=== PATIENT | female | born 1980 | race Caucasian/White ===

== ENCOUNTER 2018-08-09 10:43 | Outpatient (CLI) | payer OTHER ==
--- NOTE | 2018-08-09 12:21 | ULT ---
ULTRASOUND ABDOMEN: Date: 08/09/18 HISTORY: Abdominal pain. FINDINGS: The liver demonstrates homogeneous echotexture without focal mass or intrahepatic ductal dilatation. No gallstones, gallbladder wall thickening, or pericholecystic fluid seen. There is a small amount of sludge in the gallbladder. The common duct measures 6.0 mm in diameter. The spleen measures 13.4 cm in length. The pancreas, kidneys, and visualized portions of the aorta and IVC are unremarkable. No f ree fluid is seen. IMPRESSION: 1. Borderline splenomegaly. 2. Small amount of gallbladder sludge. POS: OFF
== END 2018-08-09 10:44 | disposition home or self-care (01) ==
LOC: SCSULT 10:43
PROVIDERS: ATTEND Family Medicine
DX: R10.84 Generalized abdominal pain (principal); R16.1 Splenomegaly, not elsewhere classified; K82.9 Disease of gallbladder, unspecified
CPT/HCPCS: 76700

== ENCOUNTER 2018-08-16 08:42 | Outpatient (CLI) | payer OTHER ==
--- NOTE | 2018-08-16 11:18 | CT ---
CT ABDOMEN AND PELVIS WITHOUT IV CONTRAST: HISTORY: Abdominal pain. Splenomegaly. TECHNIQUE: Absence of IV contrast reduces the sensitivity of the exam for evaluation or solid organs. Oral cont rast was administered. FINDINGS: The lung bases are clear. No free air or free fluid is seen in the abdomen or pelvis. There is a 7 mm lymph node in the aortocaval space. A circumaortic left renal vein is present. No calcified gall stones are seen. The spleen measures 13 cm in length. No calculi are seen in the kidneys, ureters, or urinary bladder . No hydroureteronephrosis is noted on either side. The patient is post hysterectomy. The small bowel loops are not abnormally dilated. There is no evidence of aneurysmal dilatation of t he abdominal aorta. There are no acute osseous abnormalities seen. There is prominence of the wall of the colon. A small fat-containing umbilical hernia is present. IMPRESSION: 1. Borderline splenomegaly. 2. No CT evidence of urinary tract calculi or obstruction. 3. Prominence of the colonic wall. Incomplete distention versus wall thickening. Further evaluatio n with colonoscopy is recommended. POS: OFF
== END 2018-08-16 08:43 | disposition home or self-care (01) ==
LOC: CT 08:42
PROVIDERS: ATTEND Family Medicine
DX: R16.1 Splenomegaly, not elsewhere classified (principal)
CPT/HCPCS: 74176

== ENCOUNTER 2018-08-26 07:38 | Outpatient (CLI) | payer OTHER ==
--- NOTE | 2018-08-26 12:10 | NM ---
NUCLEAR MEDICINE HEPATOBILIARY SCAN: Date: 08/26/18 HISTORY: Gallbladder disease, right upper quadrant pain. TECHNIQUE: Anterior planar imaging of the abdomen is obtained over 60 minutes following intravenous administrati on of 5.2 mCi technetium-99m labeled mebrofenin. The patient ingested 8 oz of Ensure to calculate the gallbladder ejection fraction. There is radiotracer activity within the liver on post injection imaging, with gallbladder activity s een by 10-15 minutes and biliary activity seen by 10-15 minutes. Small bowel activity is also seen by 10 minutes. Gallbladder ejection fraction is 99%, within normal limits. IMPRESSION: Normal hepatobiliary scan. POS: [facility]
== END 2018-08-26 07:39 | disposition home or self-care (01) ==
LOC: NM 07:38
PROVIDERS: ATTEND Family Medicine
DX: K82.8 Other specified diseases of gallbladder (principal)
CPT/HCPCS: 78227; A9537

== ENCOUNTER 2021-05-30 14:04 | Outpatient (CLI) | payer OTHER | END 2021-05-30 14:05 | disposition home or self-care (01) | LOC: TBSIIMAG 14:04 | PROVIDERS: ATTEND Otolaryngology Plastic Surgery within the Head & Neck | DX: H90.3 Sensorineural hearing loss, bilateral (principal) | CPT/HCPCS: 70553 ==

== ENCOUNTER 2022-02-03 14:18 | Outpatient (CLI) | payer BC | END 2022-02-03 14:19 | disposition home or self-care (01) | LOC: ULT 14:18 | PROVIDERS: ATTEND Student in an Organized Health Care Education/Training Program | DX: R10.30 Lower abdominal pain, unspecified (principal) | CPT/HCPCS: 76856 ==

== ENCOUNTER 2023-05-26 05:16 | Inpatient (IN) | payer BC, OTHER ==
[2023-05-26] MEDS ORDERED: Azithromycin 500 MG VIAL ONE (05:44)
[2023-05-26] MEDS ORDERED: cefTRIAXone (ROCEPHIN) 2 GM VIAL ONE (05:44)
[2023-05-26] MEDS ORDERED: Acetaminophen 500 MG TAB ONE (05:44)
[2023-05-26] MEDS ORDERED: Sodium Chloride 0.9% 100 ML ONE (05:45)
[2023-05-26 05:50] LABS: Hematocrit 41.8 % (36.0-47.0); Hemoglobin 13.7 g/dL (12.0-16.0); Mean Corpuscular Hemoglobin 31.6 pg (27.0-31.0); Mean Corpuscular Volume 96.3 fl (78.0-98.0); Red Blood Cell (RBC) Count 4.34 mill/uL (4.20-5.40); White Blood Cell (WBC) Count 5.2 10x3/uL (4.8-10.8)
[2023-05-26 05:51] LABS: #Eosinphils 0.1 thou/uL (0.0-0.7); #Monocytes 0.1 thou/uL (0.11-0.59); #Neutrophils 3.2 thou/uL (1.40-6.50); %Basophils 0.4 % (0.0-1.0); %Eosinophils 1.4 % (0.0-10.0); %Lymphocytes 35.1 % (21.0-51.0); %Monocytes 1.4 % (0.0-10.0); %Neutrophils 61.5 % (42.0-75.0); Mean Corpuscular HGB CONC 32.8 g/dL (32.0-36.0); Mean Platelet Volume 10.1 fL (7.4-10.4); Platelet Count 249 10x3/uL (130-400); RBC Distribution Width 13.2 % (11.5-14.5)
[2023-05-26 06:21] LABS: ALT (SGPT) 19 U/L (8-55); AST (SGOT) 23 U/L (5-34); Albumin 4.5 g/dL (3.5-5.0); Alkaline Phosphatase 80 U/L (40-110); Anion Gap 20 mmol/L (10-20); BUN (Urea Nitrogen) 7 mg/dL (7.0-18.7); Bilirubin, Total 0.4 mg/dL (0.2-1.2); Calc. Creatinine Clearance 0 mL/min (70-130); Calcium 8.8 mg/dL (7.8-10.44); Carbon Dioxide 21 mmol/L (22-29); Chloride 104 mmol/L (98-107); Estimated GFR 89; Globulin 3.4 g/dL (2.4-3.5); Glucose 86 mg/dL (70-105); Lipase 16 U/L (8-78); Magnesium 2.2 mg/dL (1.6-2.6); Potassium 3.5 mmol/L (3.5-5.1); Protein, Total 7.9 g/dL (6.0-8.3); Sodium 141 mmol/L (136-145)
[2023-05-26 06:23] LABS: Troponin I Less than 0.010 ng/mL (< 0.028)
[2023-05-26 06:39] LABS: SARS-CoV-2 NAA Rapid Test Not Detected (NotDetected)
[2023-05-26 07:14] LABS: Bacteria/HPF 3+ HPF (None Seen); Bilirubin Negative (Negative); Blood, Urine Negative (Negative); CAUTI Indications for Culture Fever or rigors; Clarity Clear (Clear); Glucose, Urine (Dipstick) Normal (Negative); Ketone, Urine Negative (Negative); Leukocyte Negative Leu/uL (Negative); Nitrite Negative (Negative); Protein, Urine (Dipstick) Negative (Neg-Trace); RBC/HPF 0-3 HPF (0-3); Specific Gravity, Urine 1.018 (1.002-1.036); Squamous Epithelial 0-3 HPF (0-3); Urobilinogen Normal mg/dL (Less than 2); WBC/HPF 0-3 HPF (0-3)
[2023-05-26 07:19] LABS: Urine Culture Reflex No No
[2023-05-26] MEDS ORDERED: Lorazepam 1 MG TAB ONE (07:54)
[2023-05-26] MEDS ORDERED: Sodium Chloride 0.9% 1,000 ML IV SCH ×3 (09:15→10:00)
[2023-05-26] MEDS ORDERED: Ondansetron PF 4 MG/2 ML Vial IVP PRN (09:19)
[2023-05-26] MEDS ORDERED: HYDROcodone/Acetaminophen 5/325 mg Tablet PO PRN (09:19)
[2023-05-26] MEDS ORDERED: Acetaminophen 325 MG TAB PO PRN (09:19)
[2023-05-26 09:24] VITALS: BMI 34.4
[2023-05-26] MEDS ORDERED: Oseltamivir 75 MG CAP PO SCH (09:30)
[2023-05-26] MEDS ORDERED: Non-Formulary Item 1 EACH (Zolpidem Tartrate [Ambien] 10 MG Tablet) PO PRN (09:50)
[2023-05-26] MEDS ORDERED: Zolpidem Tartrate 5 MG TAB PO PRN ×2 (10:02→10:21)
[2023-05-26] MEDS: Heparin 5,000 UNITS/ML VIAL SC SCH ×2 (15:11→20:54)
[2023-05-26] MEDS: ALPRAZOLAM 3 MG PO SCH (20:53)
[2023-05-26] MEDS: Oseltamivir 75 MG CAP PO SCH (20:53)
[2023-05-27] MEDS ORDERED: Benzonatate 100 MG CAP PO PRN (06:37)
[2023-05-27] MEDS ORDERED: Sodium Chloride 0.65% Nasal 44 ML BOT EA NARE PRN (06:38)
[2023-05-27 08:12] VITALS: BP 112/71; TEMP 97.9
[2023-05-27] MEDS: Heparin 5,000 UNITS/ML VIAL SC SCH (08:39)
[2023-05-27] MEDS: Oseltamivir 75 MG CAP PO SCH (08:40)
[2023-05-27] MEDS ORDERED: guaiFENesin/DM ER PO SCH (09:00)
[2023-05-27] MEDS: ALPRAZOLAM 3 MG PO SCH (10:11)
[2023-05-27 11:03] LABS: #Eosinphils 0.1 thou/uL (0.0-0.7); #Monocytes 0.3 thou/uL (0.11-0.59); %Basophils 0.9 % (0.0-1.0); %Eosinophils 3.9 % (0.0-10.0); %Lymphocytes 51.5 % (21.0-51.0); %Monocytes 9.9 % (0.0-10.0); %Neutrophils 31.1 % (42.0-75.0); Hematocrit 37.9 % (36.0-47.0); Hemoglobin 12.7 g/dL (12.0-16.0); Mean Corpuscular HGB CONC 33.5 g/dL (32.0-36.0); Mean Corpuscular Hemoglobin 31.4 pg (27.0-31.0); Mean Corpuscular Volume 93.8 fl (78.0-98.0); RBC Distribution Width 13.2 % (11.5-14.5); Red Blood Cell (RBC) Count 4.04 mill/uL (4.20-5.40); White Blood Cell (WBC) Count 3.3 10x3/uL (4.8-10.8)
[2023-05-27 11:26] LABS: BHCG - Serum Negative (NEGATIVE); Pregs Control Background? CLEAR/WHITE (CLR/WHITE); Pregs Control Bar Appear? YES (CONTROL BAR)
[2023-05-27 12:25] LABS: Pregnancy Test - Urine (BHCG) Negative (Negative)
[2023-05-27 12:26] LABS: Pregu Control Background? CLEAR/WHITE (CLR/WHITE); Pregu Control Bar Appear? YES (CONTROL BAR); Specific Gravity 1.018 (1.002-1.036)
== END 2023-05-27 12:22 | disposition home or self-care (01) | DRG 872 ==
LOC: ERS 05:16 → T4-B 07:39
PROVIDERS: ADMIT Internal Medicine; ATTEND Family Medicine
DX: A41.9 Sepsis, unspecified organism (principal); E87.20 Acidosis, unspecified; J10.1 Influenza due to other identified influenza virus with other respiratory manifestations; I95.9 Hypotension, unspecified; F43.10 Post-traumatic stress disorder, unspecified; E86.0 Dehydration; F41.9 Anxiety disorder, unspecified; F10.90 Alcohol use, unspecified, uncomplicated; Z88.8 Allergy status to other drugs, medicaments and biological substances; Z79.899 Other long term (current) drug therapy; Z98.891 History of uterine scar from previous surgery; Z90.710 Acquired absence of both cervix and uterus; Z87.891 Personal history of nicotine dependence; Z11.52 Encounter for screening for COVID-19
CPT/HCPCS: 36415; 71045; 80053; 81001; 81025; 82550; 83605; 83690; 83735; 84443; 84484; 84703; 85025; 87040; 93005; 93010; 96361; 96365; 96367; J0456; J0696; J1644; J3490; J7050

== ENCOUNTER 2023-12-28 15:16 | Outpatient (CLI) | payer BC | END 2023-12-28 15:17 | disposition home or self-care (01) | LOC: ULT 15:16 | PROVIDERS: ATTEND Student in an Organized Health Care Education/Training Program | DX: R63.5 Abnormal weight gain (principal); R14.0 Abdominal distension (gaseous); R53.82 Chronic fatigue, unspecified; Z90.710 Acquired absence of both cervix and uterus | CPT/HCPCS: 76856 ==